=== PATIENT | male | born 1980 | race Caucasian/White ===

== ENCOUNTER 2018-07-16 12:24 | Emergency (ER) | payer MEDICAID, OTHER ==
[2018-07-16 12:33] VITALS: BMI 37.4
[2018-07-16 12:36] VITALS: TEMP 98.8
--- NOTE | 2018-07-16 12:51 | C.PDOC ---
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
--- NOTE | 2018-07-16 13:03 | C.PDOC ---
History Of Present Illness 37 year old male presents to the emergency department with complaints of one month of left-sided back pain. Patient works at [employer] and states that the pain is worse with bending and certain lifting motions which he does often at work. Denies any associated injury or trauma. Patient also complains of increased urinary frequency but denies retention, dysuria, hematuria, fever, chills, chest pain, shortness of breath, abdominal pain, NVD. Time Seen by Provider: 07/16/18 12:41 Chief Complaint (Nursing): Back Pain History Per: Patient History/Exam Limitations: no limitations Onset/Duration Of Symptoms: Other (1 month) Current Symptoms Are (Timing): Still Present Quality Of Discomfort: "Pain" Associated Symptoms: None, Other (frequency). denies: Incontinence, New Weakness, New Numbness Past Medical History Reviewed: Historical Data, Nursing Documentation, Vital Signs Vital Signs: Last Vital Signs Temp 98.8 F 07/16/18 12:35 Pulse 89 07/16/18 12:35 Resp 17 07/16/18 12:35 BP 129/80 07/16/18 12:35 Pulse Ox 96 07/16/18 12:35 Primary Care Provider: Dilma Pandya - Medical History PMH: Anxiety Denies: Diabetes, Hepatitis, HIV, HTN, Seizures, Sexually Transmitted Disease Surgical History: Appendectomy Family History: States: No Known Family Hx - Social History Hx Tobacco Use: Yes (1/2 ppd) Hx Alcohol Use: No Hx Substance Use: Yes (IVDU Heroin and Cocaine) - Immunization History Hx Tetanus Toxoid Vaccination: No Hx Influenza Vaccination: No Hx Pneumococcal Vaccination: No Review Of Systems Except As Marked, All Systems Reviewed And Found Negative. Constitutional: Negative for: Fever, Chills Cardiovascular: Negative for: Chest Pain Respiratory: Negative for: Cough, Shortness of Breath Gastrointestinal: Negative for: Nausea, Vomiting, Diarrhea Genitourinary: Positive for: Frequency. Negative for: Dysuria, Incontinence Physical Exam - Physical Exam Appears: Non-toxic, No Acute Distress Skin: Normal Color, Warm, Dry Head: Atraumatic, Normacephalic Eye(s): bilateral: Normal Inspection Oral Mucosa: Moist Neck: Normal, Supple Chest: Symmetrical, No Tenderness Gastrointestinal/Abdominal: Soft, No Tenderness, No Guarding, No Rebound Back: Normal Inspection, CVA Tenderness (left-sided), No Vertebral Tenderness, No Decreased ROM, No Paraspinal Tenderness Neurological/Psych: Oriented x3, Normal Speech, Normal Cognition, Normal Motor, Normal Sensation (in lower extremities) Gait: Steady ED Course And Treatment O2 Sat by Pulse Oximetry: 96 (RA) Pulse Ox Interpretation: Normal - CT Scan/US Noncontrast CT Abdomen/Pelvis Other Rad Studies (CT/US): Read By Radiologist CT/US Interpretation: Date of service: 07/16/2018. PROCEDURE: CT Abdomen and Pelvis without intravenous contrast. HISTORY: left flank pain. COMPARISON: None. TECHNIQUE: Multiple contiguous axial images were performed through the abdomen and pelvis without the use of intravenous contrast. Subsequently, sagittal and coronal reformatted images were obtained. Radiation dose: Total exam DLP = 1247.27 mGy-cm. This CT exam was performed using one or more of the following dose reduction techniques: Automated exposure control, adjustment of the mA and/or kV according to patient size, and/or use of iterative reconstruction technique. FINDINGS: LOWER THORAX: Unremarkable. LIVER: Hepatomegaly with fatty infiltration of the liver. 1.6 centimeter soft tissue nodule/density anterior to the right hepatic lobe on series 3, image 16, nonspecific. GALLBLADDER AND BILE DUCTS: Suggestion of a prominent gallbladder calculus measuring up to 2.3 centimeters at the head of the gallbladder with adjacent smaller calculi. Gallbladder is distended. Correlation with right upper quadrant abdominal ultrasound may be helpful if clinically indicated. PANCREAS: Grossly preserved. SPLEEN: Prominent spleen measuring up to 16 centimeters in AP dimension. ADRENALS: Unremarkable. No mass. KIDNEYS AND URETERS: Unremarkable. No hydronephrosis. No solid mass. VASCULATURE: Unremarkable. No aortic aneurysm. No aortic atherosclerotic calcification or mural plaque present. BOWEL: Postsurgical changes at the level of the cecum/proximal right hemicolon. Fecal retention in the colon. Underdistention and or mild thickening of the ascending colon. Clinical correlation. APPENDIX: Prior appendectomy by clinical history. Surgical clips and sutures at the level of the cecum. PERITONEUM: Unremarkable. No free fluid. No free air. LYMPH NODES: Few shotty para-aortic and inguinal lymph nodes. Few shotty mesenteric lymph nodes. Suggestion of a prominent lymph node in the imelda hepatis best seen on series 3, image 48 measuring 2.0 centimeters. Clinical correlation. BLADDER: Underdistended urinary bladder limits evaluation. REPRODUCTIVE: Heterogeneous prostate with calcifications. BONES: Degenerative changes in the spine. Punctate bone island in the left proximal femur. OTHER FINDINGS: None. IMPRESSION: 1. Suggestion of a prominent gallbladder calculus measuring up to 2.3 centimeters at the head of the gallbladder with adjacent smaller calculi. Gallbladder is distended. Correlation with right upper quadrant abdominal ultrasound may be helpful if clinically indicated. 2. Postsurgical changes at the level of the cecum/proximal right hemicolon. Fecal retention in the colon. Underdistention and or mild thickening of the ascending colon. Clinical correlation. 3. Hepatomegaly with fatty infiltration of the liver. 1.6 centimeter soft tissue nodule/density anterior to the right hepatic lobe on series 3, image 16, nonspecific. 4. Prominent spleen measuring up to 16 centimeters in AP dimension. 5. Suggestion of a prominent lymph node in the imelda hepatis best seen on series 3, image 48 measuring 2.0 centimeters. Clinical correlation. This may be better evaluated with a contrast-enhanced CT scan. 6. Heterogeneous prostate with calcifications. Additional findings as above. Progress Note: Plan: CT Abdomen and Pelvis w/o Contrast. Urinalysis Medical Decision Making Medical Decision Making: UA normal, CT without evidence of nephrolithiasis. Left sided back pain likely musculoskeletal in origin, recommend supportive treatment with rest, gentle exercise, no heavy lifting, motrin/tylenol. No acute CT findings. 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 - Scribe Statement The provider has reviewed the documentation as recorded by the Scribe (Garo Thomas) All medical record entries made by the Scribe were at my direction and personally dictated by me. I have reviewed the chart and agree that the record accurately reflects my personal performance of the history, physical exam, medical decision making, and the department course for this patient. I have also personally directed, reviewed, and agree with the discharge instructions and disposition.
[2018-07-16 13:10] LABS: SQUAMOUS EPITHIAL < 1 /hpf (0-5); URINE BILIRUBIN NEGATIVE (NEGATIVE); URINE BLOOD NEGATIVE (NEGATIVE); URINE CLARITY Clear (Clear); URINE COLOR Amber (YELLOW); URINE GLUCOSE (UA) NORMAL (Normal); URINE LEUKOCYTE ESTERASE NEG Leu/uL (Negative); URINE PROTEIN NEGATIVE (NEGATIVE)
--- NOTE | 2018-07-16 14:27 | CT ---
Date of service: 07/16/2018 PROCEDURE: CT Abdomen and Pelvis without intravenous contrast HISTORY: left flank pain COMPARISON: None. TECHNIQUE: Multiple contiguous axial images were performed through the abdomen and pelvis without the use of intravenous contrast. Subsequently, sagittal and coronal reformatted images were obtained. Radiation dose: Total exam DLP = 1247.27 mGy-cm. This CT exam was performed using one or more of the following dose reduction techniques: Automated exposure control, adjustment of the mA and/or kV according to patient size, and/or use of iterative reconstruction technique. FINDINGS: LOWER THORAX: Unremarkable. LIVER: Hepatomegaly with fatty infiltration of the liver. 1.6 centimeter soft tissue nodule/density anterior to the right hepatic lobe on series 3, image 16, nonspecific. GALLBLADDER AND BILE DUCTS: Suggestion of a prominent gallbladder calculus measuring up to 2.3 centimeters at the head of the gallbladder with adjacent smaller calculi. Gallbladder is distended. Correlation with right upper quadrant abdominal ultrasound may be helpful if clinically indicated. PANCREAS: Grossly preserved. SPLEEN: Prominent spleen measuring up to 16 centimeters in AP dimension. ADRENALS: Unremarkable. No mass. KIDNEYS AND URETERS: Unremarkable. No hydronephrosis. No solid mass. VASCULATURE: Unremarkable. No aortic aneurysm. No aortic atherosclerotic calcification or mural plaque present. BOWEL: Postsurgical changes at the level of the cecum/proximal right hemicolon. Fecal retention in the colon. Underdistention and or mild thickening of the ascending colon. Clinical correlation. APPENDIX: Prior appendectomy by clinical history. Surgical clips and sutures at the level of the cecum. PERITONEUM: Unremarkable. No free fluid. No free air. LYMPH NODES: Few shotty para-aortic and inguinal lymph nodes. Few shotty mesenteric lymph nodes. Suggestion of a prominent lymph node in the imelda hepatis best seen on series 3, image 48 measuring 2.0 centimeters. Clinical correlation. BLADDER: Underdistended urinary bladder limits evaluation. REPRODUCTIVE: Heterogeneous prostate with calcifications. BONES: Degenerative changes in the spine. Punctate bone island in the left proximal femur. OTHER FINDINGS: None. IMPRESSION: 1. Suggestion of a prominent gallbladder calculus measuring up to 2.3 centimeters at the head of the gallbladder with adjacent smaller calculi. Gallbladder is distended. Correlation with right upper quadrant abdominal ultrasound may be helpful if clinically indicated. 2. Postsurgical changes at the level of the cecum/proximal right hemicolon. Fecal retention in the colon. Underdistention and or mild thickening of the ascending colon. Clinical correlation. 3. Hepatomegaly with fatty infiltration of the liver. 1.6 centimeter soft tissue nodule/density anterior to the right hepatic lobe on series 3, image 16, nonspecific. 4. Prominent spleen measuring up to 16 centimeters in AP dimension. 5. Suggestion of a prominent lymph node in the imelda hepatis best seen on series 3, image 48 measuring 2.0 centimeters. Clinical correlation. This may be better evaluated with a contrast-enhanced CT scan. 6. Heterogeneous prostate with calcifications. Additional findings as above.
[2018-07-16 14:51] VITALS: BP 118/75; PULSE 75; RESP 20
[2018-07-16 14:52] VITALS: O2SAT 96
== END 2018-07-16 14:59 | disposition home or self-care (01) ==
LOC: C.ER 12:24
DX: M54.5 Low back pain (principal)